=== PATIENT | female | born 1985 | race Caucasian/White ===

== ENCOUNTER 2017-01-02 10:11 | Emergency (ER) | payer MEDICAID, OTHER ==
[~2017-01-02] VITALS: Ht 152.4 cm; Wt 63.5 kg
[~2017-01-02 10:11] MED LIST: PRENATAL VITAMI1 T10 PO; TYLENOL #3 300/1 TAB PO
[2017-01-02 10:27] VITALS: BP 112/67
--- NOTE | 2017-01-02 11:02 | NUR ---
PT STATES COUGHING FOR ONE WEEK, SORE THROAT FOR ONE DAY . DENIES D; SKIN IS PINK/WARM/DRY; AAOX4 WITH EVEN AND STEADY GAIT; LUNGS CLEAR BL; HR EVEN AND REGULAR; PT DENIES ANY FEVER, CP, SOB, AT THIS TIME; PATIENT STATES PAIN OF 3/10 AT THIS TIME; VSS; PATIENT POSITIONED FOR COMFORT; HOB ELEVATED; BEDRAILS UP X2; BED DOWN. ER MD MADE AWARE OF PT STATUS.
[2017-01-02 11:48] VITALS: BP 112/67
--- NOTE | 2017-01-02 11:48 | NUR ---
Patient discharged with v/s stable. Written and verbal after care instructions given and explained. Patient alert, oriented and verbalized understanding of instructions. Ambulatory with steady gait. All questions addressed prior to discharge. ID band removed. Patient advised to follow up with PMD. Rx of ALBUTEROL,AZITHROMYCIN given. Patient educated on indication of medication including possible reaction and side effects. Opportunity to ask questions provided and answered.
== END 2017-01-02 11:48 | disposition home or self-care (01) ==
LOC: MED 10:11
DX: O26.893 Other specified pregnancy related conditions, third trimester (principal); J20.9 Acute bronchitis, unspecified; J02.9 Acute pharyngitis, unspecified; J45.909 Unspecified asthma, uncomplicated; Z88.1 Allergy status to other antibiotic agents; Z3A.34 34 weeks gestation of pregnancy
CPT/HCPCS: 76805; 99284; Q0092

== ENCOUNTER 2018-11-12 20:10 | Emergency (ER) | payer MEDICAID ==
[~2018-11-12] VITALS: Ht 152.4 cm; Wt 68.3 kg
[~2018-11-12 20:10] MED LIST changes: +PREN-385 PO; -PRENATAL VITAMI1 T10 PO; -TYLENOL #3 300/1 TAB PO
[2018-11-12 20:18] VITALS: BP 122/71
--- NOTE | 2018-11-12 20:30 | NUR ---
PT AMBULATED TO ER BED 06
--- NOTE | 2018-11-12 20:30 | NUR ---
Pt presents to ED with suprapubic pain, cramping, spotting, and vaginal discharge x2 days. 6/10 pain. No pain with urination. Spotting controlled. A&Ox4. Afebrile. Vss. Positioned in bed for comfort. at bedside. ER MD aware. Continue to monitor.
--- NOTE | 2018-11-12 20:47 | NUR ---
ULTRASOUND AT BEDSIDE.
[2018-11-12 21:10] LABS: BASOPHILS % (AUTO) 0.4 % (0.0-2.0); EOSINOPHILS # (AUTO) 0.1 K/uL (0-0.4); EOSINOPHILS % (AUTO) 1.2 % (0.0-4.0); HEMATOCRIT 41.5 % (36-48); HEMOGLOBIN 14.1 g/dL (12.0-16.0); LYMPHOCYTES # (AUTO) 3.1 K/uL (2.5-16.5); LYMPHOCYTES % (AUTO) 28.5 % (20.5-51.1); MEAN CORPUSCULAR HEMOGLOBIN 31 pg (27-31); MEAN CORPUSCULAR HGB CONC 34 g/dL (33-37); MONOCYTES # (AUTO) 0.7 K/uL (0.8-1.0); MONOCYTES % (AUTO) 6.9 % (1.7-9.3); NEUTROPHILS # (AUTO) 6.8 K/uL (1.8-7.7); PLATELET COUNT (AUTO) 252 K/uL (140-450); RED CELL DISTRIBUTION WIDTH 13.7 % (11.6-13.7); WHITE BLOOD COUNT (AUTO) 10.7 K/uL (4.8-10.8)
[2018-11-12 21:17] LABS: APPEARANCE,URINE CLEAR (CLEAR); BILIRUBIN,URINE NEGATIVE (NEGATIVE); BLOOD, URINE 1+ (NEGATIVE); COLOR,URINE YELLOW (YELLOW); LEUKOCYTE ESTERASE ,URINE 1+ (NEGATIVE); NITRITE, URINE NEGATIVE (NEGATIVE); UGLUCOSE NEGATIVE (NEGATIVE)
[2018-11-12 21:21] LABS: RBC,URINE 3-10 (FEW) /HPF (0-5)
[2018-11-12 21:22] LABS: URINE AMORPHOUS URATE 1+ /HPF (None Seen)
[2018-11-12 22:46] VITALS: BP 108/55
--- NOTE | 2018-11-12 22:53 | NUR ---
Patient discharged with v/s stable. Written and verbal after care instructions given and explained. Patient alert, oriented and verbalized understanding of instructions. Ambulatory with steady gait. All questions addressed prior to discharge. ID band removed. Patient advised to follow up with PMD. Rx of MACROBID, ZOFRAN given. Patient educated on indication of medication including possible reaction and side effects. Opportunity to ask questions provided and answered.
== END 2018-11-12 22:53 | disposition home or self-care (01) ==
LOC: MED 20:10
DX: O20.0 Threatened abortion (principal); O23.41 Unspecified infection of urinary tract in pregnancy, first trimester; J45.909 Unspecified asthma, uncomplicated; Z3A.09 9 weeks gestation of pregnancy; Z88.1 Allergy status to other antibiotic agents; Z79.899 Other long term (current) drug therapy
CPT/HCPCS: 36415; 76801; 81001; 81025; 84702; 85025; 86900; 86901; 87086; 99284; Q0092

== ENCOUNTER 2019-01-13 19:56 | Emergency (ER) | payer MEDICAID ==
[~2019-01-13] VITALS: Ht 152.4 cm; Wt 68.0 kg
[2019-01-13 20:40] VITALS: BP 109/63
--- NOTE | 2019-01-13 21:23 | NUR ---
PT AMBULATED TO ED 08.
--- NOTE | 2019-01-13 21:34 | NUR ---
PT GOING TO US AT THIS TIME.
[2019-01-13 21:45] LABS: BASOPHILS % (AUTO) 0.4 % (0.0-2.0); EOSINOPHILS # (AUTO) 0.2 K/uL (0-0.4); EOSINOPHILS % (AUTO) 1.7 % (0.0-4.0); HEMATOCRIT 37.8 % (36-48); HEMOGLOBIN 12.7 g/dL (12.0-16.0); LYMPHOCYTES # (AUTO) 3.7 K/uL (2.5-16.5); LYMPHOCYTES % (AUTO) 32.4 % (20.5-51.1); MEAN CORPUSCULAR HEMOGLOBIN 31 pg (27-31); MEAN CORPUSCULAR HGB CONC 34 g/dL (33-37); MEAN CORPUSCULAR VOLUME 92.1 fL (80-94); MONOCYTES # (AUTO) 0.7 K/uL (0.8-1.0); MONOCYTES % (AUTO) 5.7 % (1.7-9.3); NEUTROPHILS # (AUTO) 6.9 K/uL (1.8-7.7); NEUTROPHILS % (AUTO) 59.8 % (42.2-75.2); PLATELET COUNT (AUTO) 211 K/uL (140-450); RED BLOOD CELL COUNT(AUTO) 4.11 MIL/uL (4.20-5.40); RED CELL DISTRIBUTION WIDTH 13.6 % (11.6-13.7); WHITE BLOOD COUNT (AUTO) 11.6 K/uL (4.8-10.8)
[2019-01-13 21:49] LABS: APPEARANCE,URINE CLEAR (CLEAR); BILIRUBIN,URINE NEGATIVE (NEGATIVE); BLOOD, URINE NEGATIVE (NEGATIVE); COLOR,URINE YELLOW (YELLOW); LEUKOCYTE ESTERASE ,URINE TRACE (NEGATIVE); NITRITE, URINE NEGATIVE (NEGATIVE); PH,URINE 6.5 (5.0-9.0); UGLUCOSE NEGATIVE (NEGATIVE)
[2019-01-13 21:58] LABS: RBC,URINE 0-5 /HPF (0-5)
--- NOTE | 2019-01-13 22:02 | NUR ---
PT BIB FAMILY FOR ABD/SUPRAPUBIC PAIN X1 WEEK. PT REPORTS NON RADIATING SHARP/STABING/CRAMPING PAIN AT 7/10. PT DENIES N/V/D, OR FEVER. PT IS , DUE [facility] 06/16/19, . PT DENIES VAGINAL BLEEDING. REPORTS WHITE MUCUS VAGINAL DISCHARGE WITH NO ODOR. PT REPORTS UTI 2 WEEKS AGO AND NOT FINISHING ABX. VSS. ER MD TO SEE PT. WILL CONTINUE TO MONITOR.
--- NOTE | 2019-01-13 22:26 | NUR ---
ER MD AT BEDSIDE AT THIS TIME
[2019-01-13 22:34] VITALS: BP 110/70
== END 2019-01-13 22:34 | disposition home or self-care (01) ==
LOC: MED 19:56
DX: O23.40 Unspecified infection of urinary tract in pregnancy, unspecified trimester (principal); J45.909 Unspecified asthma, uncomplicated; Z88.1 Allergy status to other antibiotic agents; Z88.8 Allergy status to other drugs, medicaments and biological substances; Z3A.18 18 weeks gestation of pregnancy
CPT/HCPCS: 36415; 76805; 81001; 81025; 84702; 85025; 86900; 86901; 87086; 99284; Q0092

== ENCOUNTER 2019-03-31 20:55 | Inpatient (IN) | payer OTHER ==
[~2019-03-31] VITALS: Ht 152.4 cm; Wt 69.4 kg
[2019-03-31] MEDS ORDERED: LACTATED RINGERS 1,000 ML IV SCH (21:40)
[2019-03-31] MEDS ORDERED: TERBUTALINE 1 MG/ML VIAL SUBQ SCH (21:40)
[2019-03-31] MEDS ORDERED: TERBUTALINE 1 MG/ML VIAL SUBQ ONE (21:51)
[2019-03-31 22:00] LABS: BASOPHILS % (AUTO) 0.3 % (0.0-2.0); EOSINOPHILS # (AUTO) 0.2 K/uL (0-0.4); EOSINOPHILS % (AUTO) 1.7 % (0.0-4.0); HEMOGLOBIN 11.8 g/dL (12.0-16.0); LYMPHOCYTES # (AUTO) 4.2 K/uL (2.5-16.5); LYMPHOCYTES % (AUTO) 32.6 % (20.5-51.1); MEAN CORPUSCULAR HEMOGLOBIN 31 pg (27-31); MEAN CORPUSCULAR HGB CONC 34 g/dL (33-37); MEAN CORPUSCULAR VOLUME 92.5 fL (80-94); MONOCYTES # (AUTO) 0.8 K/uL (0.8-1.0); MONOCYTES % (AUTO) 6.3 % (1.7-9.3); NEUTROPHILS # (AUTO) 7.6 K/uL (1.8-7.7); NEUTROPHILS % (AUTO) 59.1 % (42.2-75.2); PLATELET COUNT (AUTO) 220 K/uL (140-450); RED BLOOD CELL COUNT(AUTO) 3.79 MIL/uL (4.20-5.40); RED CELL DISTRIBUTION WIDTH 13.6 % (11.6-13.7); WHITE BLOOD COUNT (AUTO) 12.9 K/uL (4.8-10.8)
[2019-03-31 22:15] LABS: APPEARANCE,URINE CLEAR (CLEAR); BILIRUBIN,URINE NEGATIVE (NEGATIVE); BLOOD, URINE NEGATIVE (NEGATIVE); COLOR,URINE YELLOW (YELLOW); LEUKOCYTE ESTERASE ,URINE NEGATIVE (NEGATIVE); NITRITE, URINE NEGATIVE (NEGATIVE); UGLUCOSE NEGATIVE (NEGATIVE)
[2019-03-31] MEDS ORDERED: guaiFENesin 20 MG/ML UDC PO PRN (22:30)
[2019-03-31 22:36] VITALS: BP 127/87
[2019-04-01] MEDS: TERBUTALINE 2.5 MG TAB PO SCH ×3 (01:15→12:01)
[2019-04-01] MEDS ORDERED: TERBUTALINE 2.5 MG TAB ONE ×2 (01:21→06:09)
--- NOTE | 2019-04-01 08:09 | NUR ---
PATIENT HAS BEEN SCREENED AND CATEGORIZED LOW NUTRITION RISK. PATIENT WILL BE SEEN WITHIN 7 DAYS OF ADMISSION. 04/07/[address]
== END 2019-04-01 13:04 | disposition home or self-care (01) | DRG 566 ==
LOC: MLD 20:55
PROVIDERS: ADMIT Obstetrics & Gynecology; ATTEND Obstetrics & Gynecology
DX: O26.893 Other specified pregnancy related conditions, third trimester (principal); R10.9 Unspecified abdominal pain; Z3A.29 29 weeks gestation of pregnancy
CPT/HCPCS: G0378 ×2; 36415; 81003; 85025; C1758; J3105; J7120

== ENCOUNTER 2019-12-26 18:00 | Emergency (ER) | payer OTHER ==
[~2019-12-26] VITALS: Ht 152.4 cm; Wt 61.2 kg
[2019-12-26 18:40] VITALS: BP 104/55
--- NOTE | 2019-12-26 18:48 | NUR ---
WAIT AT LOBBY.
[2019-12-26 20:29] VITALS: BP 104/55
--- NOTE | 2019-12-26 20:29 | NUR ---
PT WAS CALLED FROM LOBBY, NO ANSWER, LWBS
--- NOTE | 2019-12-26 20:29 | NUR ---
PATIENT LEFT WITHOUT BEING SEEN BY DR. TYLER. NO FURTHER CARE PROVIDED FOR PATIENT.
== END 2019-12-26 20:29 | disposition left against medical advice (07) ==
LOC: MED 18:00
DX: M79.652 Pain in left thigh (principal); Z53.21 Procedure and treatment not carried out due to patient leaving prior to being seen by health care provider

== ENCOUNTER 2020-02-06 17:32 | Emergency (ER) | payer OTHER ==
[~2020-02-06] VITALS: Ht 152.4 cm; Wt 63.5 kg
[2020-02-06 17:35] VITALS: BP 113/75
--- NOTE | 2020-02-06 17:39 | NUR ---
Patient ambulated to bed 6. RN evaluating patient at bedside.
[2020-02-06] MEDS ORDERED: DICYCLOMINE HCL LIQUID 20 MG, ALUMINUM HYD/MAG/SIMETHICONE 30 ML, LIDOCAINE VISCOUS 2% ... PO ONE ×3 (17:50)
[2020-02-06] MEDS ORDERED: ALUMINUM HYD/MAG/SIMETHICONE 30 ML UDC ONE (17:51)
[2020-02-06] MEDS ORDERED: DICYCLOMINE HCL LIQUID 10 MG/5 ML UDC ONE (17:51)
[2020-02-06] MEDS ORDERED: LIDOCAINE VISCOUS 2% 20 ML UDC ONE (17:51)
--- NOTE | 2020-02-06 17:55 | NUR ---
Dr. Pappas is evaluating the patient at bedside.
--- NOTE | 2020-02-06 17:56 | NUR ---
C/O INTERMITTENT EPIGASTRIC SHARP PAIN X 3 DAYS WITH N/V---DENIES RECENT INJURY
[2020-02-06] MEDS ORDERED: KETOROLAC 60 MG/2 ML VIAL IM ONE (18:10)
[2020-02-06 18:42] VITALS: BP 123/77
--- NOTE | 2020-02-06 18:43 | NUR ---
Patient discharged with v/s stable. Written and verbal after care instructions given and explained. Patient alert, oriented and verbalized understanding of instructions. Ambulatory with steady gait. All questions addressed prior to discharge. ID band removed. Patient advised to follow up with PMD. Rx of CIPRO/MOTRIN/ZOFRAN/PRILOSEC given. Patient educated on indication of medication including possible reaction and side effects. Opportunity to ask questions provided and answered.
== END 2020-02-06 18:43 | disposition home or self-care (01) ==
LOC: MED 17:32
DX: N39.0 Urinary tract infection, site not specified (principal); F17.210 Nicotine dependence, cigarettes, uncomplicated; J45.909 Unspecified asthma, uncomplicated; Z88.1 Allergy status to other antibiotic agents
CPT/HCPCS: 81002; 81025; 96372; 99283; J1885

== ENCOUNTER 2020-02-21 00:56 | Emergency (ER) | payer OTHER ==
[~2020-02-21] VITALS: Ht 152.4 cm; Wt 61.2 kg
[2020-02-21 01:06] VITALS: BP 124/49
[2020-02-21 01:27] VITALS: BP 124/49
== END 2020-02-21 01:27 | disposition home or self-care (01) ==
LOC: MED 00:56
DX: J45.901 Unspecified asthma with (acute) exacerbation (principal); K21.9 Gastro-esophageal reflux disease without esophagitis; F17.210 Nicotine dependence, cigarettes, uncomplicated; Z88.0 Allergy status to penicillin
CPT/HCPCS: 99283

== ENCOUNTER 2020-05-29 22:13 | Emergency (ER) | payer OTHER, SELFPAY ==
[~2020-05-29] VITALS: Ht 152.4 cm; Wt 61.2 kg
[2020-05-29 22:50] VITALS: BP 117/49
--- NOTE | 2020-05-29 22:50 | NUR ---
COVID SWAB DONE AND SENT TO LAB
--- NOTE | 2020-05-29 22:50 | NUR ---
PT TO A/W IN TENT FOR EVALUATION. PT WEARING MASK.
--- NOTE | 2020-05-29 23:42 | NUR ---
Dr. Pappas examining patient.
[2020-05-30 00:02] VITALS: BP 117/49
--- NOTE | 2020-05-30 00:02 | NUR ---
Patient discharged with v/s stable. Written and verbal after care instructions given and explained. Patient verbalized understanding. Ambulatory with steady gait. All questions addressed prior to discharge. ID Band Removed. Advised to follow up with PMD.
== END 2020-05-30 00:02 | disposition home or self-care (01) ==
LOC: MED 22:13
DX: R43.8 Other disturbances of smell and taste (principal); F17.210 Nicotine dependence, cigarettes, uncomplicated; J45.909 Unspecified asthma, uncomplicated; K21.9 Gastro-esophageal reflux disease without esophagitis; Z88.1 Allergy status to other antibiotic agents; Z20.828 Contact with and (suspected) exposure to other viral communicable diseases
CPT/HCPCS: 81002; 81025; 99283; U0003

== ENCOUNTER 2020-08-17 17:36 | Emergency (ER) | payer OTHER, SELFPAY ==
[~2020-08-17] VITALS: Ht 152.4 cm; Wt 59.0 kg
[2020-08-17 17:45] VITALS: BP 135/84
[2020-08-17 18:40] LABS: BASOPHILS # (AUTO) 0.1 K/uL (0.00-0.22); BASOPHILS % (AUTO) 0.7 % (0.0-2.0); EOSINOPHILS # (AUTO) 0.1 K/uL (0-0.4); EOSINOPHILS % (AUTO) 0.7 % (0.0-4.0); HEMOGLOBIN 13.8 g/dL (12.0-16.0); LYMPHOCYTES # (AUTO) 2.6 K/uL (2.5-16.5); LYMPHOCYTES % (AUTO) 18.7 % (20.5-51.1); MEAN CORPUSCULAR HEMOGLOBIN 32 pg (27-31); MEAN CORPUSCULAR HGB CONC 35 g/dL (33-37); MEAN CORPUSCULAR VOLUME 93.8 fL (80-94); MONOCYTES # (AUTO) 0.8 K/uL (0.8-1.0); MONOCYTES % (AUTO) 5.9 % (1.7-9.3); NEUTROPHILS # (AUTO) 10.1 K/uL (1.8-7.7); PLATELET COUNT (AUTO) 293 K/uL (140-450); RED BLOOD CELL COUNT(AUTO) 4.26 MIL/uL (4.20-5.40); WHITE BLOOD COUNT (AUTO) 13.6 K/uL (4.8-10.8)
[2020-08-17 18:57] LABS: ANION GAP 13.6 (8-16); CARBON DIOXIDE 27.8 mmol/L (21-32); CREATININE 0.8 mg/dL (0.6-1.3); POTASSIUM 3.4 mmol/L (3.5-5.1)
[2020-08-17] MEDS ORDERED: KETOROLAC 30 MG/ML VIAL IM ONE ×2 (19:20)
[2020-08-17] MEDS ORDERED: ALUMINUM HYD/MAG/SIMETHICONE 30 ML UDC PO ONE (19:45)
[2020-08-17] MEDS ORDERED: FAMOTIDINE 20 MG TAB PO ONE (19:45)
[2020-08-17] MEDS ORDERED: KETOROLAC 30 MG/ML VIAL ONE (20:32)
[2020-08-17] MEDS ORDERED: HYDROcodone/APAP 5/325 MG 1 TAB TAB PO ONE (20:45)
[2020-08-17] MEDS ORDERED: ALBUTEROL HFA MDI 90 MCG/ACTUATION 8 GM INH ONE (20:45)
[2020-08-17 23:31] VITALS: BP 109/69
== END 2020-08-17 22:20 | disposition home or self-care (01) ==
LOC: MED 17:36
DX: J18.9 Pneumonia, unspecified organism (principal); F17.210 Nicotine dependence, cigarettes, uncomplicated; J45.909 Unspecified asthma, uncomplicated; K21.9 Gastro-esophageal reflux disease without esophagitis; Z88.1 Allergy status to other antibiotic agents; Z71.6 Tobacco abuse counseling; Z20.828 Contact with and (suspected) exposure to other viral communicable diseases
CPT/HCPCS: 36415; 71045; 71275; 80048; 81025; 84484; 85025; 85379; 93005; 96372; 99285; J1885; J3535; Q0092; Q9967; U0003

== ENCOUNTER 2020-11-03 19:19 | Emergency (ER) | payer OTHER ==
[~2020-11-03] VITALS: Ht 152.4 cm; Wt 61.2 kg
[2020-11-03 19:21] VITALS: BP 124/86
[2020-11-03] MEDS ORDERED: LIDOCAINE 2% 1000 MG/50 ML VIAL INJ ONE (19:55)
--- NOTE | 2020-11-03 19:59 | NUR ---
ERMD AT BEDSIDE.
[2020-11-03] MEDS ORDERED: IBUPROFEN 800 MG TAB PO ONE (20:05)
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
[2020-11-03] MEDS ORDERED: BACITRACIN OINT 500 UNITS/GM PKT TP ONE (20:28)
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
--- NOTE | 2020-11-03 20:45 | NUR ---
Patient discharged with v/s stable. Written and verbal after care instructions given and explained. Patient alert, oriented and verbalized understanding of instructions. Ambulatory with steady gait. All questions addressed prior to discharge. ID band removed. Patient advised to follow up with PMD. Rx of BACTRIM, MOTRIN 800MG given. Patient educated on indication of medication including possible reaction and side effects. Opportunity to ask questions provided and answered.
[2020-11-03 20:49] VITALS: BP 124/86
== END 2020-11-03 20:45 | disposition home or self-care (01) ==
LOC: MED 19:19
DX: S51.812A Laceration without foreign body of left forearm, initial encounter (principal); J45.909 Unspecified asthma, uncomplicated; K21.9 Gastro-esophageal reflux disease without esophagitis; F17.210 Nicotine dependence, cigarettes, uncomplicated; Z71.6 Tobacco abuse counseling; Z88.0 Allergy status to penicillin; X78.1XXA Intentional self-harm by knife, initial encounter; Y93.89 Activity, other specified; Y92.89 Other specified places as the place of occurrence of the external cause; Y99.8 Other external cause status
CPT/HCPCS: 12002; 90471; 90715; 99283; J2001

== ENCOUNTER 2020-11-18 13:33 | Emergency (ER) | payer OTHER ==
[~2020-11-18] VITALS: Ht 154.9 cm; Wt 61.2 kg
[2020-11-18 13:59] VITALS: BP 124/66
--- NOTE | 2020-11-18 14:22 | NUR ---
Patient discharged with v/s stable. Written and verbal after care instructions given and explained. Patient verbalized understanding. Ambulatory with steady gait. All questions addressed prior to discharge BY AIME KNA. Advised to follow up with PMD.
[2020-11-18 14:24] VITALS: BP 124/66
== END 2020-11-18 14:22 | disposition home or self-care (01) ==
LOC: MED 13:33
DX: S51.812D Laceration without foreign body of left forearm, subsequent encounter (principal); J45.909 Unspecified asthma, uncomplicated; K21.9 Gastro-esophageal reflux disease without esophagitis; Z88.1 Allergy status to other antibiotic agents; X58.XXXD Exposure to other specified factors, subsequent encounter
CPT/HCPCS: 99281

== ENCOUNTER 2021-06-05 01:20 | Emergency (ER) | payer OTHER | END 2021-06-05 01:33 | disposition left against medical advice (07) | LOC: MED 01:20 | DX: K08.89 Other specified disorders of teeth and supporting structures (principal); Z53.21 Procedure and treatment not carried out due to patient leaving prior to being seen by health care provider ==

== ENCOUNTER 2024-07-14 21:38 | Emergency (ER) | payer OTHER ==
[~2024-07-14] VITALS: Ht 152.4 cm; Wt 74.8 kg
[2024-07-14 21:49] VITALS: BP 129/94; PULSE 96; RESP 14; TEMP 98.6; O2SAT 99
[2024-07-14] MEDS ORDERED: LORA10TA19 PO (22:09)
[2024-07-14] MEDS ORDERED: HYDR28CR67 TP (22:09)
[2024-07-14] MEDS ORDERED: DIPH25TA53 PO (22:09)
== END 2024-07-14 22:17 | disposition home or self-care (01) ==
LOC: MED 21:38
DX: O99.713 Diseases of the skin and subcutaneous tissue complicating pregnancy, third trimester (principal); R21 Rash and other nonspecific skin eruption; R03.0 Elevated blood-pressure reading, without diagnosis of hypertension; O99.513 Diseases of the respiratory system complicating pregnancy, third trimester; J45.909 Unspecified asthma, uncomplicated; O99.613 Diseases of the digestive system complicating pregnancy, third trimester; K21.9 Gastro-esophageal reflux disease without esophagitis; Z3A.31 31 weeks gestation of pregnancy; Z79.899 Other long term (current) drug therapy; Z88.0 Allergy status to penicillin
CPT/HCPCS: 99282